=== PATIENT | male | born 1990 | race African-American/Black ===

== ENCOUNTER 2023-11-08 21:21 | Inpatient (IN) | payer OTHER ==
[~2023-11-08] VITALS: Ht 162.6 cm; Wt 85.3 kg
[2023-11-08] MEDS: ONDANSETRON HCL 4MG/2ML INJ IV STA (22:22)
[2023-11-08] MEDS: SODIUM CHLORIDE 0.9% 1,000 ML IV ONE (22:22)
[2023-11-08] MEDS: FAMOTIDINE 20MG/2ML VIAL IV STA (22:22)
[2023-11-08] MEDS: KETOROLAC 30MG/ML VIAL IV STA (22:22)
[2023-11-08] MEDS: MAGNESIUM/ALUMINUM HYDROXIDE/SIMETHICONE 30ML UDC PO STA (22:22)
[2023-11-08 23:54] LABS: HEMATOCRIT. 42.2 % (42.0-52.0); HEMOGLOBIN. 14.1 g/dL (14.0-18.0); MEAN CORPUSCULAR HEMOGLOBIN 29.5 pg (28.0-32.0); MEAN CORPUSCULAR HGB CONC 33.4 g/dL (31.0-37.0); MEAN CORPUSCULAR VOLUME 88.3 fL (80.0-94.0); MEAN PLATELET VOLUME 9.6 fl (7.4-10.4); PLATELET 163 x1000/uL (130-400); RED BLOOD CELL COUNT 4.78 mill/uL (4.7-6.1); RED CELL DISTRIBUTION WIDTH 14.1 % (11.6-14.6); WHITE BLOOD COUNT 9.2 x1000/uL (4.5-11.0)
[2023-11-09 00:01] LABS: DIFFERENTIAL COMMENT 1
[2023-11-09] MEDS ORDERED: ONDA4TAB50 PO (00:01)
[2023-11-09 00:14] LABS: ALANINE AMINOTRANSFERASE 28 IU/L (10-49); ASPARTATE AMINOTRANSFERASE 29 IU/L (<34); BILIRUBIN TOTAL 0.4 mg/dL (0.1-1.0); CARBON DIOXIDE 24 mEq/L (21-32); CHLORIDE 110 mEq/L (98-107); CREATININE 1.5 mg/dL (0.6-1.3); GLUCOSE 82 mg/dL (70-105); POTASSIUM 4.5 mEq/L (3.5-5.1); PROTEIN TOTAL 6.7 g/dL (6.0-8.3); SODIUM 141 mEq/L (136-145); UREA NITROGEN BLOOD 16 mg/dL (9-23)
[2023-11-09 00:26] LABS: TROPONIN I HIGH SENSITIVITY < 4 ng/L (3.0-53)
[2023-11-09 04:00] VITALS: BP 96/55; PULSE 63; RESP 18; TEMP 98.8
[2023-11-09 05:13] LABS: PLATELET ESTIMATE NORMAL
[2023-11-09 05:30] VITALS: BP 112/76; PULSE 72; RESP 16; TEMP 99.1
[2023-11-09] MEDS ORDERED: KETOROLAC 30MG/ML VIAL IV PRN (07:30)
[2023-11-09] MEDS ORDERED: ONDANSETRON HCL 4MG/2ML INJ IV PRN (07:30)
[2023-11-09 08:00] VITALS: BP 111/73; PULSE 63; RESP 18; TEMP 97.6
[2023-11-09] MEDS: PANTOPRAZOLE 40MG DR TABLET PO SCH (08:16)
[2023-11-09] MEDS: SODIUM CHLORIDE 0.9% 1,000 ML IV SCH (08:17)
[2023-11-09 12:00] VITALS: BP 114/71; PULSE 76; RESP 18; TEMP 97.8
[2023-11-09 16:00] VITALS: BP 102/62; PULSE 72; RESP 18; TEMP 97.6
[2023-11-09 20:00] VITALS: BP 117/74; PULSE 61; RESP 18; TEMP 98.2
[2023-11-10] VITALS: BP 112/72; PULSE 65; RESP 16; TEMP 97.1
[2023-11-10 04:00] VITALS: BP 91/57; PULSE 62; RESP 18; TEMP 97.7
[2023-11-10 08:00] VITALS: BP 119/79; PULSE 54; RESP 15; TEMP 97.6
[2023-11-10 12:00] VITALS: BP 97/70; PULSE 59; RESP 17; TEMP 97.6
[2023-11-10 13:14] VITALS: BP 97/70; PULSE 59; TEMP 97.6; O2SAT 100
== END 2023-11-10 17:07 | disposition home or self-care (01) | DRG 249 ==
LOC: ER 21:21 → EDBD 21:21 → 8WST 11-09 01:03 → EDBEDREQ 11-09 01:10 → EDBEDREQTM 11-09 01:10 → EDBEDREQSVC 11-09 01:10 → ER 11-09 03:00
PROVIDERS: ADMIT Internal Medicine; ATTEND Internal Medicine
DX: K52.9 Noninfective gastroenteritis and colitis, unspecified (principal); N17.0 Acute kidney failure with tubular necrosis
CPT/HCPCS: 36415; 80053; 84484; 85025; 99285; J1885; J2405; J3490; J7030